=== PATIENT | female | born 1975 | race Hispanic/Latino ===

== ENCOUNTER 2020-02-18 16:50 | Emergency (ER) | payer SELFPAY ==
--- NOTE | 2020-02-18 18:33 | RAD ---
RIGHT KNEE FOUR VIEWS: History: Knee pain. FINDINGS: There are mild degenerative changes. There are marginal osteophytes medially and laterally. Mild loss of medial joint space. Spurring from the patella. Joint effusion is noted. IMPRESSION: Mild to moderate degenerative changes with evidence of joint effusion. No acute fracture identified. POS: [facility]
== END 2020-02-18 19:12 | disposition home or self-care (01) ==
LOC: ERS 16:50
DX: M17.11 Unilateral primary osteoarthritis, right knee (principal); Z79.899 Other long term (current) drug therapy